=== PATIENT | male | born 1980 | race African-American/Black ===

== ENCOUNTER 2020-03-11 05:28 | Emergency (ER) | payer MEDICAID ==
[~2020-03-11] VITALS: Ht 175.3 cm; Wt 82.0 kg
[2020-03-11 05:45] VITALS: BP 116/74
[2020-03-11] MEDS ORDERED: DICYCLOMINE 10 MG/5 ML ORAL SYR PO STA (06:23)
[2020-03-11] MEDS ORDERED: MAGNESIUM/ALUMINUM HYDROXIDE/SIMETHICONE 30ML UDC PO STA (06:23)
[2020-03-11] MEDS ORDERED: VISCOUS LIDOCAINE 2% 15 ML UDC PO STA (06:23)
[2020-03-11] MEDS ORDERED: ACETAMINOPHEN 325MG TABLET PO ONE (06:45)
== END 2020-03-11 08:00 | disposition home or self-care (01) ==
LOC: ER 05:28
DX: R10.13 Epigastric pain (principal); R11.2 Nausea with vomiting, unspecified
CPT/HCPCS: 99283